=== PATIENT | female | born 1960 | race Caucasian/White ===

== ENCOUNTER 2016-09-19 12:49 | Emergency (ER) | payer BC ==
[2016-09-19 13:03] VITALS: BP 118/69
--- NOTE | 2016-09-19 13:32 | UC ---
Skin Complaint HPI - HPI Summary HPI Summary: The patient comes in today for: 1. Rash: Onset: ONe week Palliative/provocative: Touching makes it worse. Quality: Itching and burning. Region: Left inquinal area. Severity: 0/10 without touching. With touching 8/10 Time: Comes and goes. Associated symptoms: She had a similar rash a year ago and it was treated with an antibiotic, but it was at a different area. Her present rash is of the left groin and the previous rash a year ago was periumbilical. Tick bite: She states that she has not had any history of tick bite, but remembers when she had a tick on the back of her neck in the recent past, but she down plays this as a possible problem as she "got it when it was crawling on me--it did not bite me." * - History of Current Complaint Chief Complaint: UCRash Time Seen by Provider: 09/19/16 13:25 Stated Complaint: RASH Hx Obtained From: Patient Hx Last Menstrual Period: Menopause. - Allergy/Home Medications Allergies/Adverse Reactions: Allergies Allergy/AdvReac Type Severity Reaction Status Date / Time Penicillins [PCN] Allergy Rash Verified 09/19/16 12:58 Review of Systems Constitutional: Negative Skin: Rash Eyes: Negative ENT: Negative Respiratory: Negative Cardiovascular: Negative Gastrointestinal: Negative Genitourinary: Negative Motor: Negative Neurovascular: Negative Musculoskeletal: Negative Neurological: Negative Psychological: Negative All Other Systems Reviewed And Are Negative: Yes PMH/Surg Hx/FS Hx/Imm Hx Previously Healthy: Yes - Surgical History Surgical History: Yes Surgery Procedure, Year, and Place: hernia surgery - Family History Known Family History: Positive: Cardiac Disease, Diabetes - Social History Occupation: Employed Full-time Alcohol Use: None Substance Use Type: None Smoking Status (MU): Never Smoked Tobacco Physical Exam Triage Information Reviewed: Yes Appearance: Well-Appearing, No Pain Distress, Well-Nourished Vital Signs: Initial Vital Signs Temp 98.5 F 09/19/16 12:59 Pulse 66 09/19/16 12:59 Resp 16 09/19/16 12:59 BP 118/69 09/19/16 12:59 Pulse Ox 99 09/19/16 12:59 Vital Signs Reviewed: Yes Eyes: Positive: Conjunctiva Clear. Negative: Discharge ENT: Positive: Hearing grossly normal. Negative: Pharyngeal erythema, Nasal congestion, Nasal drainage, TM bulging, TM dull, TM red, Tonsillar swelling, Tonsillar exudate Dental: Negative: Gross Decay/Caries @, Dental Fracture @ Neck: Positive: Supple, Nontender, No Lymphadenopathy. Negative: Nuchal Rigidity Respiratory: Positive: Lungs clear, No respiratory distress, No accessory muscle use. Negative: Crackles, Rhonchi Cardiovascular: Positive: RRR, No Murmur Abdomen Description: Positive: Nontender, No Organomegaly, Soft. Negative: Distended, Guarding Musculoskeletal: Positive: Strength Intact, ROM Intact, No Edema Neurological: Positive: Alert, Muscle Tone Normal Psychological: Positive: Age Appropriate Behavior, Consolable Skin: Positive: rashes - She has a faint erythematous rash centered in the left inquinal area. It extends to the left lateral hip and arounds to the posterior upper left leg. It extends to the genital area. No skin edema. Course/Dx - Course Course Of Treatment: Patient told that she will be tested for Lyme and started on Doxycycline. She agreed. - Differential Diagnoses - Skin Complaint Differential Diagnoses: Cellulitis, Impetigo, Urticaria - Diagnoses Provider Diagnoses: Dermatitis (rule out Lyme disease). Discharge - Discharge Plan Condition: Stable Disposition: HOME Patient Education Materials: Dermatitis (ED) Referrals: Dorie Morales [Primary Care Provider] - 1 Week (Please see your primary care provider next week to see how well you are doing. If you get worse, please be seen sooner. )
--- NOTE | 2016-09-23 14:50 | ED ---
Progress - Progress Note Progress Note: (+) FOR LYME, WILL CALL IN 18 DAYS OF ADDITIONAL DOXYCYCLINE. THANKS ROXANNA Course/Dx - Course Course Of Treatment: Patient told that she will be tested for Lyme and started on Doxycycline. She agreed. - Diagnoses Provider Diagnoses: Rash
[2016-09-23 16:16] LABS: Lyme Disease IgG Ab WB Positive (Negative)
== END 2016-09-19 13:57 | disposition home or self-care (01) ==
LOC: UCCORT 12:49
DX: L30.9 Dermatitis, unspecified (principal)
CPT/HCPCS: 86617; 86618; 99212; G0463